=== PATIENT | female | born 1965 | race Caucasian/White ===

== ENCOUNTER → 2022-02-22 | Day surgery (SDC) | payer OTHER ==
[~2022-02-22] MED LIST: ACETAMINOPHEN-1 EAC4 PO; BUPIVACAINE HCL 0.5% 10ML MPF VIAL INJ ONE; DEXAMETHASONE SOD PHOS INJ 4 MG/ML SDV ONE; FENTANYL CITRATE/PF 100MCG/2 ML INJ ONE; LIDOCAINE HCL 2% LOCAL INJ 5 ML SDV VIAL INJ ONE; MIDAZOLAM HCL 2 MG/2 ML VIAL ONE; MUPIROCIN 2% OINT 22 GM TUBE ONE; ONDANSETRON HCL INJ 2MG/ML 2ML 2 MG/ML VIAL ONE; POVIDONE IODINE 0.05% 0.05 % ML PO ONE; PROPOFOL IV EMULSION 10 MG/ML 20 ML VIAL ONE; SEVOFLURANE INHAL SOLN 250 ML PEN BTL ONE
[2022-02-22 08:10] VITALS: BP 108/67
== END | disposition home or self-care (01) ==
LOC: OR 07:22
PROVIDERS: ATTEND Plastic Surgery
DX: M15.1 Heberden's nodes (with arthropathy) (principal); L72.8 Other follicular cysts of the skin and subcutaneous tissue; Z01.810 Encounter for preprocedural cardiovascular examination
CPT/HCPCS: 26236; 81025; 93005; J0690; J1100; J2001; J2250; J2405; J2704; J3010